=== PATIENT | male | born 1970 | race Caucasian/White ===

== ENCOUNTER 2016-10-17 20:51 | Emergency (ER) | payer OTHER ==
[~2016-10-17 20:51] MED LIST: AUGMENTIN 500-1 EACH PO; DIABETA5 MG PO; HYDROCODON-ACE1 EAC6 PO; INVOKANA100 MG PO; LYRICA200 MG PO; NICODERM 21MG PA1 EA TD; SULFAMETHOXAZO1 EACH PO; ZESTRIL20 M1 PO; ZOCOR20 MG PO
== END 2016-10-17 22:45 ==
LOC: ER 20:51
DX: S89.91XA Unspecified injury of right lower leg, initial encounter (principal); W19.XXXA Unspecified fall, initial encounter; Y92.009 Unspecified place in unspecified non-institutional (private) residence as the place of occurrence of the external cause; Z89.511 Acquired absence of right leg below knee; F17.210 Nicotine dependence, cigarettes, uncomplicated; E11.9 Type 2 diabetes mellitus without complications; Z79.4 Long term (current) use of insulin; Z79.899 Other long term (current) drug therapy; Z79.891 Long term (current) use of opiate analgesic; Z79.02 Long term (current) use of antithrombotics/antiplatelets
CPT/HCPCS: 96372; 99070; 99282-25